=== PATIENT | male | born 1950 | race Caucasian/White ===

== ENCOUNTER 2018-10-25 12:04 | Inpatient (IN) | payer BC ==
[~2018-10-25] VITALS: Ht 172.7 cm; Wt 90.0 kg
[~2018-10-25 12:04] MED LIST: Pravastatin Sod20 MG PO; Zestril40 MG PO
[2018-10-25 12:55] LABS: BASOPHILS ABSOLUTE AUTO 0.01 K/mm3 (0.00-0.23); BASOPHILS PERCENT AUTO 0 % (0-2); EOSINOPHILS ABSOLUTE AUTO 0.04 K/mm3 (0.00-0.68); EOSINOPHILS PERCENT AUTO 0 % (0-6); Hematocrit 26.8 % (37.0-53.0); Hemoglobin 8.5 g/dL (13.5-17.5); IMMATURE GRAN ABSOLUTE AUTO 0.03 K/mm3 (0.00-0.10); IMMATURE GRAN PERCENT AUTO 0 % (0-1); LYMPHOCYTES ABSOLUTE AUTO 0.38 K/mm3 (0.84-5.20); LYMPHOCYTES PERCENT AUTO 4 % (21-46); MONOCYTES ABSOLUTE AUTO 0.36 K/mm3 (0.16-1.47); MONOCYTES PERCENT AUTO 4 % (4-13); Mean Corpuscular HGB Conc 31.7 g/dL (31.5-36.5); Mean Corpuscular Volume 95 fL (80-100); Mean Platelet Volume 9.9 fL (9.1-12.4); NEUTROPHILS ABSOLUTE AUTO 8.47 K/mm3 (1.96-9.15); NEUTROPHILS PERCENT AUTO 91 % (41-73); Platelet Count 249 K/mm3 (150-400); Red Blood Cell Count 2.83 M/mm3 (4.30-5.90); White Blood Cell Count 9.29 K/mm3 (4.00-11.30)
[2018-10-25 13:00] LABS: Alanine Aminotransfer (ALT/SGP 18 U/L (12-78); Albumin, Blood 3.3 g/dL (3.4-5.0); Albumin/Globulin Ratio 0.8 (0.8-1.8); Alk Phos 82 U/L (50-136); Anion Gap 7 mmol/L (6-16); Aspartate Aminotrans (AST/SGOT 10 U/L (12-37); Bilirubin, Total 0.2 mg/dL (0.1-1.0); Blood Urea Nitrogen 28 mg/dL (8-24); Bun/Creatinine Ratio 23.3 (12.0-20.0); CO2, Blood 23 mmol/L (21-32); Calcium, Blood 8.9 mg/dL (8.5-10.1); Chloride, Blood 104 mmol/L (98-108); Globulin, Blood 4.3 g/dL (2.2-4.0); Glomerular Filtration Rate >60 (60-); Glucose, Blood 99 mg/dL (70-99); Potassium, Blood 4.9 mmol/L (3.5-5.5); Sodium, Blood 134 mmol/L (136-145); Total Protein, Blood 7.6 g/dL (6.4-8.2); Troponin I <0.015 ng/mL (0.000-0.040)
[2018-10-25] MEDS ORDERED: BUDE6HFA INH (13:57)
[2018-10-25 16:04] LABS: PCO2 Arterial 56.4 mmHg (35-45); PO2 Arterial 59.5 mmHg (80-100)
[2018-10-25 16:06] LABS: pH Blood Arterial 7.21 (7.35-7.45)
[2018-10-25 20:29] LABS: PCO2 Arterial 43.6 mmHg (35-45); PO2 Arterial 78.4 mmHg (80-100); pH Blood Arterial 7.32 (7.35-7.45)
[2018-10-25 21:59] LABS: Source, Urine Clean Catch
[2018-10-25 22:01] LABS: Bilirubin, Urine Neg (Neg); Blood, Urine Neg (Neg); Glucose Qualitative, Urine Neg (Neg); Ketones, Urine Neg (Neg); Leukocyte Esterase, Urine 1+ (Neg); Nitrite, Urine Neg (Neg); Protein, Urine 2+ (Neg); Specific Gravity, Urine 1.015 (1.003-1.022); Urobilinogen, Urine NORM (Normal)
[2018-10-25 22:31] LABS: Appearance, Urine Clear (Clear); Color, Urine Yellow (P-Yellow)
[2018-10-25 22:36] LABS: Bacteria Few /hpf; Red Blood Cells, Urine 0-2 /hpf (0-2); Squamous Epithelial Cells Few /hpf (Few)
[2018-10-26 12:00] LABS: International Normalized Ratio 1.09; Prothrombin Time Results 11.2 Sec (9.7-11.5)
[2018-10-27 03:52] LABS: Hematocrit 22.6 % (37.0-53.0); Hemoglobin 7.2 g/dL (13.5-17.5); Mean Corpuscular HGB 30.3 pg (26.0-34.0); Mean Corpuscular HGB Conc 31.9 g/dL (31.5-36.5); Mean Corpuscular Volume 95 fL (80-100); Mean Platelet Volume 9.7 fL (9.1-12.4); Platelet Count 178 K/mm3 (150-400); RDW Coefficient Variation 15.3 % (11.7-14.2); RDW Standard Deviation 52.7 fL (35.1-46.3); Red Blood Cell Count 2.38 M/mm3 (4.30-5.90)
[2018-10-27 04:24] LABS: Bun/Creatinine Ratio 27.6 (12.0-20.0); Calcium, Blood 8.5 mg/dL (8.5-10.1); Creatinine, Blood 1.27 mg/dL (0.60-1.20); Potassium, Blood 5.3 mmol/L (3.5-5.5)
[2018-10-27 06:07] LABS: Hematocrit 23.4 % (37.0-53.0); Hemoglobin 7.5 g/dL (13.5-17.5); Mean Corpuscular HGB 30.1 pg (26.0-34.0); Mean Corpuscular HGB Conc 32.1 g/dL (31.5-36.5); Mean Corpuscular Volume 94 fL (80-100); Mean Platelet Volume 10.3 fL (9.1-12.4); Platelet Count 183 K/mm3 (150-400); RDW Coefficient Variation 15.4 % (11.7-14.2); RDW Standard Deviation 53.1 fL (35.1-46.3); Red Blood Cell Count 2.49 M/mm3 (4.30-5.90)
[2018-10-28 06:14] LABS: Hemoglobin 9.5 g/dL (13.5-17.5); Mean Corpuscular HGB 29.7 pg (26.0-34.0); Mean Corpuscular HGB Conc 32.8 g/dL (31.5-36.5); Mean Platelet Volume 10.2 fL (9.1-12.4); Platelet Count 186 K/mm3 (150-400); RDW Coefficient Variation 16.4 % (11.7-14.2); RDW Standard Deviation 53.9 fL (35.1-46.3)
[2018-10-28 06:16] LABS: Mean Corpuscular Volume 91 fL (80-100)
[2018-10-28 06:31] LABS: Bun/Creatinine Ratio 23.6 (12.0-20.0); Creatinine, Blood 1.27 mg/dL (0.60-1.20); Potassium, Blood 5.7 mmol/L (3.5-5.5)
[2018-10-28 13:12] LABS: Anion Gap 10 mmol/L (6-16); Blood Urea Nitrogen 27 mg/dL (8-24); CO2, Blood 24 mmol/L (21-32); Calcium, Blood 8.9 mg/dL (8.5-10.1); Chloride, Blood 102 mmol/L (98-108); Creatinine, Blood 1.23 mg/dL (0.60-1.20); Glomerular Filtration Rate >60 (60-); Glucose, Blood 85 mg/dL (70-99); Potassium, Blood 4.9 mmol/L (3.5-5.5); Sodium, Blood 136 mmol/L (136-145)
[2018-10-29 05:02] LABS: Anion Gap 7 mmol/L (6-16); Blood Urea Nitrogen 27 mg/dL (8-24); Bun/Creatinine Ratio 21.6 (12.0-20.0); CO2, Blood 25 mmol/L (21-32); Calcium, Blood 8.8 mg/dL (8.5-10.1); Chloride, Blood 103 mmol/L (98-108); Creatinine, Blood 1.25 mg/dL (0.60-1.20); Glomerular Filtration Rate >60 (60-); Glucose, Blood 92 mg/dL (70-99); Potassium, Blood 5.6 mmol/L (3.5-5.5); Sodium, Blood 135 mmol/L (136-145)
[2018-10-29] MEDS ORDERED: ACET325 PO (11:37)
[2018-10-29] MEDS ORDERED: ATOR80 PO (11:37)
[2018-10-29] MEDS ORDERED: ASPI81CH PO (11:38)
[2018-10-29] MEDS ORDERED: CLOP75 PO (11:39)
[2018-10-29] MEDS ORDERED: METO25 PO (11:41)
[2018-10-29] MEDS ORDERED: PRED20 PO (11:46)
[2018-10-29] MEDS ORDERED: ISOMON20 PO (11:52)
== END 2018-10-29 12:39 | disposition home or self-care (01) | DRG 248 ==
LOC: ER 12:04 → PCU 16:51
PROVIDERS: Emergency Medicine; Family Medicine; Internal Medicine; Internal Medicine Interventional Cardiology; Physician Assistant
PROC: 5A09357 Assistance with Respiratory Ventilation, Less than 24 Consecutive Hours, Continuous Positive Airway Pressure (ICD-10-PCS; 2018-10-25)
PROC: 027 Heart and Great Vessels, Dilation (ICD-10-PCS; principal; 2018-10-28)
PROC: B2111ZZ Fluoroscopy of Multiple Coronary Arteries using Low Osmolar Contrast (ICD-10-PCS; 2018-10-28)
PROC: 4A023N7 Measurement of Cardiac Sampling and Pressure, Left Heart, Percutaneous Approach (ICD-10-PCS; 2018-10-28)
DX: I21.4 Non-ST elevation (NSTEMI) myocardial infarction (principal); J96.01 Acute respiratory failure with hypoxia; J96.02 Acute respiratory failure with hypercapnia; J44.1 Chronic obstructive pulmonary disease with (acute) exacerbation; E87.2 Acidosis; C34.91 Malignant neoplasm of unspecified part of right bronchus or lung; E87.1 Hypo-osmolality and hyponatremia; I10 Essential (primary) hypertension; Z87.891 Personal history of nicotine dependence; R00.0 Tachycardia, unspecified; Z92.3 Personal history of irradiation; Z92.21 Personal history of antineoplastic chemotherapy; Z90.2 Acquired absence of lung [part of]; E87.5 Hyperkalemia; Z79.02 Long term (current) use of antithrombotics/antiplatelets
CPT/HCPCS: 36415; 36430; 36600; 71046; 71260; 80048; 80053; 81001; 82803; 84145; 84484; 85025; 85027; 85347; 85610; 85730; 86850; 86900; 86901; 86923; 90686; 92928; 92978; 93005; 93010; 93306; 93458; 94640; 94660; 94760; 94762; 96361; 96365; 96366; 96375; 96376; 99152; 99153; 99285-25; C1725; C1753; C1769; C1876; C1887; C1894; J1170; J1644; J1650; J1956; J2250; J2920; J2930; J3010; J7030; J7050; J7120; P9016; Q9967

== ENCOUNTER 2018-11-08 12:56 | Day surgery (SDC) | payer BC ==
[~2018-11-08] VITALS: Ht 170.2 cm; Wt 88.9 kg
[~2018-11-08 12:56] MED LIST changes: +ACET325 PO; +ASPI81CH PO; +ATOR80 PO; +BUDE6HFA INH; +CLOP75 PO; +ISOMON20 PO; +METO25 PO; +PRED20 PO
--- NOTE | 2018-11-08 13:49 | NUR ---
11/08/18 1349 David Ware Bite Block PlacedBite Block PlacedPatient to ENDO 1History, Chart, Medications and Allergies reviewed before start of procedure.MONITOR INTACT WITH CONTINUOUS PULSE OXIMETRY AND INTERMITTENT BP. O2 VIA N/C INTACT THROUGHOUT SEDATION/PROCEDURE. See Anesthesia record.
--- NOTE | 2018-11-08 13:53 | NUR ---
History, Chart, Medications and Allergies reviewed before start of procedure. LS WITH EW ON L BASE, R UPPER AND LOWER CLEAR. Patient confirms NPO status and agrees with scheduled surgery. Patient States Post-Procedure ride home has been arranged.
--- NOTE | 2018-11-08 15:11 | NUR ---
Discharge instructions reviewed with patient. Patient verbalizes understanding. Copy given to patient to take home. INFORMATION OF A FULL LIQUID DEIT GIVEN TO PATEINT HE HAD SOME QUESTIONS RELATED TO THIS. Discharged via wheelchair to private car for ride home WITH
[2018-11-27] MEDS ORDERED: BUDE6HFA INH (11:17)
[2018-11-27] MEDS ORDERED: DIFLUCAN40 MG/1 ML PO (11:19)
== END 2018-11-08 23:14 | disposition home or self-care (01) ==
LOC: ORSCMMR 12:56 → ORD 15:00 → ORSCMMR 15:00
PROVIDERS: Internal Medicine Gastroenterology
PROC: 0DJ08ZZ Inspection of Upper Intestinal Tract, Via Natural or Artificial Opening Endoscopic (ICD-10-PCS; principal; 2018-11-08 15:00)
DX: R13.19 Other dysphagia (principal); K22.2 Esophageal obstruction; I10 Essential (primary) hypertension; I25.2 Old myocardial infarction; I25.10 Atherosclerotic heart disease of native coronary artery without angina pectoris; J44.9 Chronic obstructive pulmonary disease, unspecified; Z87.891 Personal history of nicotine dependence; Z79.899 Other long term (current) drug therapy; Z79.82 Long term (current) use of aspirin; Z85.118 Personal history of other malignant neoplasm of bronchus and lung
CPT/HCPCS: J2250; J7120

== ENCOUNTER 2018-11-08 16:34 | Emergency (ER) | payer BC ==
[~2018-11-08] VITALS: Ht 172.7 cm; Wt 88.9 kg
[2018-11-27] MEDS ORDERED: BUDE6HFA INH (11:17)
[2018-11-27] MEDS ORDERED: DIFLUCAN40 MG/1 ML PO (11:19)
== END 2018-11-08 19:07 | disposition short-term general hospital (02) ==
LOC: ER 16:34
DX: C34.90 Malignant neoplasm of unspecified part of unspecified bronchus or lung (principal); K22.2 Esophageal obstruction; R13.10 Dysphagia, unspecified; Z79.899 Other long term (current) drug therapy; Z79.82 Long term (current) use of aspirin; Z79.52 Long term (current) use of systemic steroids; I10 Essential (primary) hypertension; J44.9 Chronic obstructive pulmonary disease, unspecified; D64.9 Anemia, unspecified; I48.91 Unspecified atrial fibrillation; Z87.891 Personal history of nicotine dependence
CPT/HCPCS: 99284

== ENCOUNTER 2018-11-16 18:04 | Emergency (ER) | payer BC ==
[~2018-11-16] VITALS: Ht 172.7 cm; Wt 88.5 kg
[2018-11-16] MEDS ORDERED: PRAV20 PO (19:47)
[2018-11-16 20:47] LABS: BASOPHILS ABSOLUTE AUTO 0.01 K/mm3 (0.00-0.23); BASOPHILS PERCENT AUTO 0 % (0-2); EOSINOPHILS ABSOLUTE AUTO 0.07 K/mm3 (0.00-0.68); EOSINOPHILS PERCENT AUTO 1 % (0-6); Hematocrit 33.6 % (37.0-53.0); Hemoglobin 10.6 g/dL (13.5-17.5); IMMATURE GRAN ABSOLUTE AUTO 0.04 K/mm3 (0.00-0.10); IMMATURE GRAN PERCENT AUTO 0 % (0-1); LYMPHOCYTES ABSOLUTE AUTO 0.71 K/mm3 (0.84-5.20); LYMPHOCYTES PERCENT AUTO 7 % (21-46); MONOCYTES ABSOLUTE AUTO 0.13 K/mm3 (0.16-1.47); MONOCYTES PERCENT AUTO 1 % (4-13); Mean Corpuscular HGB 30.4 pg (26.0-34.0); Mean Corpuscular HGB Conc 31.5 g/dL (31.5-36.5); Mean Corpuscular Volume 96 fL (80-100); NEUTROPHILS PERCENT AUTO 90 % (41-73); RDW Coefficient Variation 15.8 % (11.7-14.2); RDW Standard Deviation 55.9 fL (35.1-46.3); Red Blood Cell Count 3.49 M/mm3 (4.30-5.90); White Blood Cell Count 9.86 K/mm3 (4.00-11.30)
[2018-11-16 20:48] LABS: Mean Platelet Volume 10.9 fL (9.1-12.4); Platelet Count 94 K/mm3 (150-400)
[2018-11-16 20:58] LABS: Albumin, Blood 3.6 g/dL (3.4-5.0); Albumin/Globulin Ratio 0.9 (0.8-1.8); Bilirubin, Total 0.4 mg/dL (0.1-1.0); Calcium, Blood 9.1 mg/dL (8.5-10.1); Creatinine, Blood 1.37 mg/dL (0.60-1.20); Globulin, Blood 4.2 g/dL (2.2-4.0); Potassium, Blood 4.9 mmol/L (3.5-5.5); Total Protein, Blood 7.8 g/dL (6.4-8.2)
[2018-11-27] MEDS ORDERED: BUDE6HFA INH (11:17)
[2018-11-27] MEDS ORDERED: DIFLUCAN40 MG/1 ML PO (11:19)
== END 2018-11-17 03:44 | disposition short-term general hospital (02) ==
LOC: ER 18:04
PROVIDERS: Emergency Medicine
DX: K22.2 Esophageal obstruction (principal); R22.2 Localized swelling, mass and lump, trunk; Z79.899 Other long term (current) drug therapy
CPT/HCPCS: 36415; 70360; 71260; 80053; 85025; 93005; 93010; 96361; 96374; 99285-25; J2930; J7030; Q9967

== ENCOUNTER 2018-11-28 10:15 | Day surgery (SDC) | payer BC ==
[~2018-11-28] VITALS: Ht 170.2 cm; Wt 85.9 kg
[~2018-11-28 10:15] MED LIST changes: +DIFLUCAN40 MG/1 ML PO; +PRAV20 PO
--- NOTE | 2018-11-28 12:35 | NUR ---
PT RETURNED TO RECOVERY ROOM ON BED. PEG TUB SITE SOFT NON-TENDER WITH INTACT DRESSING AND NO BLEEDING. PT DENIES STOMACH PAIN. CALL LIGHT IN REACH.
--- NOTE | 2018-11-28 13:40 | NUR ---
DR AVILA TO SEE PT AT 1315. DR AVILA AWARE OF BLOOD PRESSURES IN RECOVERY; BP CUFF ON LEFT ARM AND PT LAYING ON HIS RIGHT SIDE.
--- NOTE | 2018-11-28 13:45 | NUR ---
PEG TUBE SITE SOFT NON-TENDER WITH NO BLEEDING AND INTACT DRESSING. PT DENIES ANY PAIN OR NAUSEA; PT DENIES STOMACH PAIN.
--- NOTE | 2018-11-28 14:13 | NUR ---
DR AVILA IN ROOM TO SEE PT. 20 G IV DISCONTINUED FROM RIGHT AC WITH INTACT CANNULA. PT HAS ABDOMINAL BRACE ON OVER PEG TUBE SITE DRESSING. PT DRESSED HIMSELF.
--- NOTE | 2018-11-28 14:33 | NUR ---
DISCHARGE INSTRUCTIONS REVIEWED ALL QUESTIONS ANSWERED. PT ESCORTED OUT VIA WHEELCHAIR ESCORT.
== END 2018-11-28 14:30 | disposition home or self-care (01) ==
LOC: MHTC 10:15
DX: C34.31 Malignant neoplasm of lower lobe, right bronchus or lung (principal); R13.19 Other dysphagia; J44.9 Chronic obstructive pulmonary disease, unspecified; I10 Essential (primary) hypertension; Z87.891 Personal history of nicotine dependence
CPT/HCPCS: 49440; 76937; 99152; 99153; C1769; J0690; J1644; J2250; J3010; J7030; J7040; Q9967

== ENCOUNTER 2019-01-27 14:23 | Observation (INO) | payer BC ==
[~2019-01-27] VITALS: Ht 172.7 cm; Wt 77.5 kg
[~2019-01-27 14:23] MED LIST changes: -ASPI81CH PO; +Percocet 5-3251 EACH PO
[2019-01-27 15:03] LABS: BASOPHILS ABSOLUTE AUTO 0.03 K/mm3 (0.00-0.23); BASOPHILS PERCENT AUTO 0 % (0-2); EOSINOPHILS ABSOLUTE AUTO 0.01 K/mm3 (0.00-0.68); EOSINOPHILS PERCENT AUTO 0 % (0-6); Hematocrit 23.9 % (37.0-53.0); Hemoglobin 6.8 g/dL (13.5-17.5); IMMATURE GRAN ABSOLUTE AUTO 0.25 K/mm3 (0.00-0.10); IMMATURE GRAN PERCENT AUTO 1 % (0-1); LYMPHOCYTES ABSOLUTE AUTO 0.46 K/mm3 (0.84-5.20); LYMPHOCYTES PERCENT AUTO 2 % (21-46); MONOCYTES PERCENT AUTO 4 % (4-13); Mean Corpuscular HGB 28.9 pg (26.0-34.0); Mean Corpuscular HGB Conc 28.5 g/dL (31.5-36.5); Mean Platelet Volume 10.3 fL (9.1-12.4); NEUTROPHILS ABSOLUTE AUTO 18.93 K/mm3 (1.96-9.15); NEUTROPHILS PERCENT AUTO 93 % (41-73); NRBC ABSOLUTE 0.02 K/mm3 (0.00-0.02); NRBC Auto 0.1 /100 WBC (0.0-0.2); Platelet Count 280 K/mm3 (150-400); RDW Coefficient Variation 16.2 % (11.7-14.2); Red Blood Cell Count 2.35 M/mm3 (4.30-5.90); White Blood Cell Count 20.48 K/mm3 (4.00-11.30)
[2019-01-27 15:16] LABS: Mean Corpuscular Volume 102 fL (80-100)
[2019-01-27 15:17] LABS: Albumin, Blood 2.1 g/dL (3.4-5.0); Albumin/Globulin Ratio 0.4 (0.8-1.8); Bilirubin, Total 0.4 mg/dL (0.1-1.0); Calcium, Blood 9.2 mg/dL (8.5-10.1); Creatinine, Blood 3.81 mg/dL (0.60-1.20); Globulin, Blood 5.1 g/dL (2.2-4.0); Potassium, Blood 5.9 mmol/L (3.5-5.5); Total Protein, Blood 7.2 g/dL (6.4-8.2)
[2019-01-27 15:43] LABS: Troponin I 6.87 ng/mL (0.000-0.040)
[2019-01-27] MEDS ORDERED: ATOR80 PO (17:55)
[2019-01-27] MEDS ORDERED: ISODIN10 PO (17:56)
[2019-01-27] MEDS ORDERED: CLOP75 PO (17:56)
[2019-01-27] MEDS ORDERED: Aspirin EC81 MG PO (17:58)
[2019-01-27] MEDS ORDERED: BUDE6HFA INH (18:31)
[2019-01-27] MEDS ORDERED: OMEPRAZOLE MAGN20 MG PO (18:32)
--- NOTE | 2019-01-27 21:58 | NUR ---
COMFORT CARE PATIENT SETTLED INTO ROOM. MEDICATED FOR PAIN. POSITIONED HOB ELEVATED. PATIENT STATED HE IS COMFORTABLE. CURRENTLY SLEEPING WITH NO SIGNS OF DISTRESS.
--- NOTE | 2019-01-28 04:31 | NUR ---
SHIFT SUMMARY-COMFORT CARE PATIENT MEDICATED FOR PAIN SEVERAL TIMES THIS SHIFT. PATIENT STATES HE IS NOT EXPERIENCING DIFFICULTY BREATHING OR NAUSEA. 2L 02 VIA NC FOR COMFORT. PATIETN SLEPT MOST OF SHIFT. NO SIGNS OF DISTRESS NOTED. PATIENT ABLE TO VERBALIZE PAIN REQUESTS. CALL LIGHT IN REACH, WILL CONTINUE TO MONITOR UNTIL REPORT GIVEN TO ONCOMING RN.
--- NOTE | 2019-01-28 08:15 | NUR ---
P.T. DID NOT HAVE BALLOON INFLATED SO IT STAYED IN FOR FLUSH BUT CAME OUT EITHER DURING OR AFTER MEDS WENT IN. CHARGE NURSE NOTIFIED. WILL CALL MD TO CHANGE MEDS TO IV.
--- NOTE | 2019-01-28 08:20 | NUR ---
CALLED AND Massiel IV FLUIDS. ATIVAN 1-2 MG CHANGED TO IV
--- NOTE | 2019-01-28 09:10 | NUR ---
PATIENT PASSED 0850. LEATHER SEASONER, CUE SELECTOR, HOSPICE, PALLIATIVE CARE AND NOTIFIED. PROBATION AGENT TO TAKE OFF CONDOM CATH AND D'C IV.
== END 2019-01-28 08:50 ==
LOC: ER 14:23 → MEDS 14:24
PROVIDERS: Emergency Medicine; ADMIT Hospitalist
DX: J96.01 Acute respiratory failure with hypoxia (principal); J96.02 Acute respiratory failure with hypercapnia; I21.4 Non-ST elevation (NSTEMI) myocardial infarction; C34.11 Malignant neoplasm of upper lobe, right bronchus or lung; E87.5 Hyperkalemia; I10 Essential (primary) hypertension; J44.9 Chronic obstructive pulmonary disease, unspecified; D63.8 Anemia in other chronic diseases classified elsewhere; I48.91 Unspecified atrial fibrillation; I25.10 Atherosclerotic heart disease of native coronary artery without angina pectoris; E78.00 Pure hypercholesterolemia, unspecified; Z87.891 Personal history of nicotine dependence; Z79.899 Other long term (current) drug therapy; Z79.82 Long term (current) use of aspirin; Z79.02 Long term (current) use of antithrombotics/antiplatelets
CPT/HCPCS: 43761; 49465; 71046; 76604; 80053; 84484; 85025; 93005; 93010; 94640; 94760; 96361-59; 96374-59; 96375; 99285-25; G0378; J1170; J2405; J7120; Q9963